=== PATIENT | female | born 1955 | race Caucasian/White ===

== ENCOUNTER 2020-03-21 14:46 | IRF | payer MEDICARE, SELFPAY ==
--- NOTE | 2020-03-21 15:17 | ADMGEN ---
This patient, Marita Piña, was admitted to [facility] Room 221-02. Patient/family oriented to hospital policies and general routines including ID bracelet, bed and alarms, visiting hours, pain management, procedures, bathroom and other care routines, personal items, smoking policy, room service/diet, and visiting hours. Valuables list has been completed. Information on how to activate the Rapid Response Team has been discussed. Patient/Family are encouraged to report perceived risks to care and to ask questions if they do not understand what they are told or what they should do. [id number], arrived on unit, transported bu via private auto, alert and oriented x4, belongings list completed. no c/o pain or discomfort
[2020-03-21 15:30] VITALS: BP 129/77; PULSE 56; RESP 20; TEMP 36.6; O2SAT 96; BMI 33.3
[2020-03-21 15:51] VITALS: BMI 33.3
--- NOTE | 2020-03-21 16:44 | PCRCNOTE ---
pt does not want cpap at this hospital visit due to switches in scalp
[2020-03-21] MEDS: CHOLECALCIFEROL 1,000 UNIT TABLET 2000 UNITS PO (20:10)
[2020-03-21] MEDS: DEXAMETHASONE 4 MG TABLET PO (20:11)
[2020-03-21] MEDS: levETIRAcetam 500 MG TABLET 1000 MG PO (20:11)
[2020-03-21] MEDS: CEPHALEXIN 500 MG CAPSULE PO (20:11)
[2020-03-21] MEDS: CALCIUM CARBONATE (OSCAL) 500 MG TABLET PO (20:11)
[2020-03-21] MEDS: ASCORBIC ACID 500 MG TABLET 1000 MG PO (20:12)
[2020-03-21] MEDS: MULTIVITAMINS THERAPEUTIC TAB (*BKC) 1 TABLET PO (20:12)
[2020-03-21] MEDS: SIMVASTATIN 20 MG TABLET PO (20:12)
[2020-03-21 22:00] VITALS: BP 143/83; PULSE 56; RESP 16; TEMP 36.4; O2SAT 98
[2020-03-22 04:57] LABS: Basophils Percent Auto 0.1 % (0.2-1.2); Hematocrit 36.9 % (37.0-47.0); Hemoglobin 12.3 g/dL (12.0-15.0); Immature Granulocyte Absolute 0.09 K/mm3 (0.00-0.031); Immature Granulocyte Percent A 0.8 % (0-0.5); Lymphocytes Absolute Auto 1.05 K/mm3 (0.9-3.2); Lymphocytes Percent Auto 9.5 % (18.3-44.2); Mean Corpuscular HGB Conc 33.3 g/dl (32-36); Mean Corpuscular Hemoglobin 30.8 pg (26-34); Mean Corpuscular Volume 92.5 fl (80-100); Mean Platelet Volume 9.5 fl (7.4-10.4); Monocytes Absolute Auto 0.8 K/mm3 (0.1-0.6); Monocytes Percent Auto 7.1 % (2.6-8.5); Neutrophils Absolute Auto 9.1 K/mm3 (1.3-6.7); Neutrophils Percent Auto 82.5 % (45.5-73.1); Platelet Count Result 172 k/mm3 (150-375); Red Blood Count 3.99 M/mm3 (4.2-5.4); Red Cell Distribution Width 13.3 % (11.5-14.5)
[2020-03-22 05:15] LABS: Anion Gap 4 mmol/L (8-16); Blood Urea Nitrogen 28 mg/dL (7-17); Calcium 8.5 mg/dL (8.4-10.2); Carbon Dioxide 32 mmol/L (22-30); Chloride 98 mmol/L (98-107); Estimated CRCL calculation 68 ml/min; Estimated Glomerular Filt Rate > 60; Glucose 122 mg/dL (65-105); Potassium 4.8 mmol/L (3.4-5.0); Sodium 134 mmol/L (137-145)
[2020-03-22 06:00] VITALS: BP 140/69; PULSE 50; RESP 18; TEMP 36.1; O2SAT 97
[2020-03-22 07:02] LABS: Glucose Point of Care 107 (65-105)
[2020-03-22] MEDS: DOCUSATE SODIUM 100 MG CAPSULE PO (09:07)
[2020-03-22] MEDS: CEPHALEXIN 500 MG CAPSULE PO ×4 (09:07→20:17)
[2020-03-22] MEDS: DEXAMETHASONE 4 MG TABLET PO ×4 (09:07→20:16)
[2020-03-22] MEDS: ESCITALOPRAM OXALATE 10 MG TABLET PO (09:07)
[2020-03-22] MEDS: levETIRAcetam 500 MG TABLET 1000 MG PO ×2 (09:08→20:16)
--- NOTE | 2020-03-22 12:00 | WPDREHABHP ---
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 And MRI brain on March 08, 2020 demonstrated a dominant or other dominate precentral gyrus 1.8 centimeter solidly enhancing lesion with significant reactive edema, 3 smaller lesions measuring a few millimeters involving the right medial frontal lobe, left occipital lobe, and right cerebellar hemisphere. The patient's left leg is nearly plegic but improving however she feels that it has gotten a little worse since the surgery on March 18, 2020 Dr. Hank Barraza performed an MRI guided right frontal craniotomy for resection of the brain metastases. Postoperatively the patient has experienced acute postoperative pain, acute blood-loss anemia and hypertension. Her pain is controlled with oral medication, her blood pressure is normotensive and she is hemodynamically be stable she was placed on IV Keppra for seizure prophylaxis and she has since transitioned to oral Keppra. Physical examination continues to reveal left lower extremity weakness more so however she does have a left arm weakness 2. She remains awake and alert oriented x3 with [id number] cognitive dysfunction. The drain from the craniotomy site was removed on March 20, 2020. The patient will be discharged to us on the rehab on sequential compression devices the patient has not traveled outside the [place] or had contact with someone who is ill that has traveled outside the [place] in the past 21 days. Patient has not traveled to an area of the [place] that is experiencing known transmission of the Coronavirus and has not had close personal contact with anyone that has. The patient does not have a fever. The patient is not experiencing lower respiratory illness symptoms. The patient test is negative for COVID-19 on March 15, 2020 On March 11, 2020 MRSA was negative. Therapy was initiated at the acute care facility and the patient transferred to us from [facility] on March 21, 2012 on FALLS OR SURGERIES: The patient has had major surgeries in the 100 days prior to admission. They had falls in the past year. They had no falls with injury in the past year. PAST MEDICAL HISTORY: periodic limb movement disorder, pericardial effusion, obstructive sleep apnea, non-small cell lung cancer, hyperlipidemia, hiatal hernia, gastroesophageal reflux disease, chronic obstructive pulmonary disease, hypertension, atrial fibrillation, arthritis, anxiety, depression, vertigo PAST SURGICAL HISTORY: pericardial window 2018, tubal ligation, hysterectomy, Port-A-Cath, ectopic , left breast biopsy. SOCIAL HISTORY: Patient is and retired. She lives with her in a 1 level house 2 steps to enter. She used wheel walker prior. She was independent with functional transfers and ambulation. The patient has had progressive leg weakness due to her brain lesion and that has limited her ability to ambulate. She has an elevated toilet grab bars in the shower and tub shower chair with back and her bathroom is accessible by walker. She required moderate assist with bathing and minimal assistance with toileting and dressing as she progressively worsened. Her helped her. She is hoping to
[2020-03-22 14:00] VITALS: BP 116/63; PULSE 62; RESP 18; TEMP 36.6; O2SAT 97
[2020-03-22 17:29] LABS: Glucose Point of Care 168 (65-105)
[2020-03-22] MEDS: CHOLECALCIFEROL 1,000 UNIT TABLET 2000 UNITS PO (20:16)
[2020-03-22] MEDS: ASCORBIC ACID 500 MG TABLET 1000 MG PO (20:16)
[2020-03-22] MEDS: CALCIUM CARBONATE (OSCAL) 500 MG TABLET PO (20:18)
[2020-03-22] MEDS: SIMVASTATIN 20 MG TABLET PO (20:18)
[2020-03-22] MEDS: MULTIVITAMINS THERAPEUTIC TAB (*BKC) 1 TABLET PO (20:18)
[2020-03-22 22:00] VITALS: BP 124/66; PULSE 72; RESP 20; TEMP 36; O2SAT 96
[2020-03-23 06:00] VITALS: BP 146/78; PULSE 54; RESP 17; TEMP 36.1; O2SAT 100
[2020-03-23 06:47] LABS: Glucose Point of Care 119 (65-105)
[2020-03-23] MEDS: DOCUSATE SODIUM 100 MG CAPSULE PO (08:38)
[2020-03-23] MEDS: CEPHALEXIN 500 MG CAPSULE PO ×4 (08:38→21:02)
[2020-03-23] MEDS: ESCITALOPRAM OXALATE 10 MG TABLET PO (08:38)
[2020-03-23] MEDS: DEXAMETHASONE 4 MG TABLET PO ×4 (08:38→21:02)
[2020-03-23] MEDS: levETIRAcetam 500 MG TABLET 1000 MG PO ×2 (08:38→21:02)
[2020-03-23 11:52] LABS: Glucose Point of Care 118 (65-105)
--- NOTE | 2020-03-23 13:11 | PCPTNOTE ---
Marita Norman Sloanchristophe was evaluated for a wheeled walker on 03/23/2020 by this physical therapist parts room assistant. The wheeled walker will resolve patient's mobility limitations and will be used for ADL's within the home. The patient can safely use the wheeled walker. ?The wheeled walker will resolve the patient?s mobility deficits, including impaired balance and decreased strength.
[2020-03-23 14:00] VITALS: BP 142/75; PULSE 63; RESP 18; TEMP 36.5; O2SAT 96
[2020-03-23 17:14] LABS: Glucose Point of Care 152 (65-105)
[2020-03-23] MEDS: MULTIVITAMINS THERAPEUTIC TAB (*BKC) 1 TABLET PO (21:01)
[2020-03-23] MEDS: SIMVASTATIN 20 MG TABLET PO (21:02)
[2020-03-23] MEDS: ASCORBIC ACID 500 MG TABLET 1000 MG PO (21:02)
[2020-03-23] MEDS: CHOLECALCIFEROL 1,000 UNIT TABLET 2000 UNITS PO (21:02)
[2020-03-23] MEDS: CALCIUM CARBONATE (OSCAL) 500 MG TABLET PO (21:02)
[2020-03-23 21:47] VITALS: BP 110/68; PULSE 71; RESP 18; TEMP 36.4; O2SAT 97
[2020-03-24 06:00] VITALS: BP 135/71; PULSE 52; RESP 18; TEMP 35.5; O2SAT 99
[2020-03-24 06:45] LABS: Glucose Point of Care 110 (65-105)
[2020-03-24] MEDS: CEPHALEXIN 500 MG CAPSULE PO ×4 (08:56→20:38)
[2020-03-24] MEDS: DEXAMETHASONE 4 MG TABLET PO ×4 (08:56→20:38)
[2020-03-24] MEDS: DOCUSATE SODIUM 100 MG CAPSULE PO (08:57)
[2020-03-24] MEDS: ESCITALOPRAM OXALATE 10 MG TABLET PO (08:57)
[2020-03-24] MEDS: levETIRAcetam 500 MG TABLET 1000 MG PO ×2 (08:57→20:38)
--- NOTE | 2020-03-24 09:35 | WPDNEURORHBP ---
Subjective Date/time seen: metastatic brain disease with H/O craniotomy and COPD,AF,And underlyingsmall cell carcinoma of lung03/24/20 09:35 Review of Systems Review of Systems: All systems reviewed & are unremarkable except as noted in HPI and below Functional Status Ambulation Ability Ability to Ambulate 10 Feet: Moderate Assistance X 1 Ambulation Assistive Devices: Walker, Wheeled Exam Const: General: cooperative, comfortable, no acute distress, well developed, alert, awake and well groomed Nutritional Appearance: overweight Orientation/consciousness: patient oriented x3 HENMT: Head: normal to inspection (wound clean) Eyes: General: appearance normal, both eyes and all related structures Neck: Neck: normal visual inspection and full ROM Thyroid: thyroid normal Resp: Effort & Inspection: normal respiratory effort and able to speak in complete sentences Auscultation: clear to auscultation bilaterally Cardio: Rate: regular rate Rhythm: regular rhythm GI: Auscultation: normal bowel sounds Skin: General skin exam: normal color Wounds: wounds noted Neuro: General: patient oriented x3 Cranial nerves: Yes CN's II-XII intact bilaterally Cognition (Neuro): normal cognition Speech: normal speech Motor exam (neuro): Abnormal motor strength present (left jessica LLE>LUE) Plantar Reflex Responses: downgoing: right and upgoing (positive Babinski): left Psych: Appearance: grossly normal Objective Data Vital Signs Vital Signs: Vital Signs - 24 hr 03/23/20 14:00 03/23/20 21:47 03/24/20 06:00 Temperature 36.5 C 36.4 C L 35.5 C L Pulse Rate 63 71 52 L Respiratory Rate 18 18 18 Blood Pressure 142/75 H 110/68 135/71 Pulse Oximetry 96 97 99 Intake/Output Intake/Output: Intake & Output 03/21/20 03/22/20 03/23/20 03/24/20 23:59 23:59 23:59 23:59 Intake Total 240 720 720 480 Balance 240 720 720 480 Meds/Results Medications: Active Medications Generic Name Dose Route Start Last Admin Trade Name Freq PRN Reason Stop Dose Admin Hydrocodone Bitart/Acetaminophen 2 tab 03/21/20 17:04 [place] 5-325 Mg PO Q4H PRN Pain (Scale Score 7-10) Hydrocodone Bitart/Acetaminophen 1 tab 03/21/20 17:08 [place] 5-325 Mg PO Q4H PRN Pain Rated 4-6 Albuterol 2 puff 03/21/20 17:04 Proventil Hfa INHALATION Q6H PRN Shortness Of Breath Ascorbic Acid 1,000 mg 03/21/20 21:00 03/23/20 21:02 Vitamin C PO 1,000 mg HS ANNA MARIE Administration Calcium Carbonate 500 mg 03/21/20 21:00 03/23/20 21:02 Oscal 500 Mg PO 500 mg HS ANNA MARIE Administration Cephalexin HCl 500 mg 03/21/20 21:00 03/24/20 08:56 Keflex Capsule PO 03/31/20 23:00 500 mg QID ANNA MARIE Administration Dexamethasone 4 mg 03/21/20 21:00 03/24/20 08:56 Dexamethasone Po PO 4 mg WMHS ANNA MARIE Administration Diazepam 5 mg 03/21/20 17:04 Valium Po PO Q6H PRN Spasms Docusate Sodium 100 mg 03/22/20 09:00 03/24/20 08:57 Colace Capsule PO 100 mg DAILY ANNA MARIE Administration Escitalopram Oxalate 10 mg 03/22/20 09:00 03/24/20 08:57 Lexapro PO 10 mg DAILY ANNA MARIE Administration Levetiracetam 1,000 mg 03/21/20 21:00 03/24/20 08:57 Keppra Tablet PO 1,000 mg Q12HR ANNA MARIE Administration Multivitamins Therapeutic 1 tablet 03/21/20 21:00 03/23/20 21:01 Multivitamins Therapeutic(*Bkc PO 1 tablet HS ANNA MARIE Administration Senna 8.6 mg 03/21/20 17:04 Senokot Tablet PO BID PRN Constipation Simvastatin 20 mg 03/21/20 21:00 03/23/20 21:02 Zocor PO 20 mg HS [facility] Administration Vitamin D 2,000 unit 03/21/20 21:00 03/23/20 21:02 Vitamin D PO 04/20/20 21:01 2,000 unit HS ANNA MARIE Administration Labs Labs: Laboratory Results - last 24 hr 03/23/20 03/23/20 03/24/20 11:51 17:02 06:23 POC Capillary Glucose 118 H 152 H 110 Progress Note: A&P Assessment and Plan (1) Anxiety and depression: Code(s): F41.9 - Anxiety d
--- NOTE | 2020-03-24 09:43 | RPD ---
INDIVIDUALIZED PLAN OF CARE FOR Marita Piña Brief Synthesis of Pre-Admission Screen, Post-Admission Evaluation and Therapy Evaluations: The patient presents to rehab with brain metastases. Comorbidities include status post craniotomy, non-small cell lung cancer, left leg paresis, acute postoperative pain, acute blood loss anemia, hypertension, hyperlipidemia, periodic limb movement disorder, obstructive sleep apnea, hiatal hernia, gastroesophageal reflux disease, chronic obstructive pulmonary disease, atrial fibrillation, arthritis, anxiety, and depression.The complexity of the patient's medical management, nursing, and therapy needs require an inpatient rehab hospital stay with a physician-led interdisciplinary team approach. The patient?s needs will be best met in an intensive program vs. at a lower level of care. The patient requires physician services for neurology services, medical oversight, and coordination of care. The patient needs physician monitoring and treatment of anemia, perioperative blood loss, monitoring for adverse reactions to new medications, monitoring of infection, and pain control. The patient requires nursing services for frequent neuro checks, anticoagulation therapy, medication management and education, pressure relief and skin care management, monitoring of labs, bowel and bladder training, diabetes management and education, IV administration, and fall/safety precautions Deficits include:ADLs, Balance, Endurance, Family Training/Education, Mobility, Pain Management, ROM, Safety, Strength, and Transfers. Signal Mechanic/Case Management for: Discharge Planning and Patient/Family Counseling Physical Therapy: 5 days per week for 90 minutes. Treatments may include: Therapeutic Exercise, Gait Training, Neuromuscular Re-education, Transfer Training, Community Reintegration, Bed Mobility, Patient/Family Education, Wheelchair Mobility Group Therapy/Concurrent Therapy Rationales: -Improve attention span during functional activities in a distracted environment. -Enhance problem solving and/or adequate judgment skills during functional activities in a distracted environment. -Promote increased safety awareness in a distracted environment to reduce fall risk with functional tasks, transfers, and ambulation to allow a more safe, self-sufficient return to the home environment. -Improve dynamic balance skills to promote safety and independence with functional activities in a distracted environment for maximum gain. Occupational Therapy: 5 days per week for 90 minutes. Treatments may include: Therapeutic Exercise, Therapeutic Activity, Cognitive Training, Self-Care Transfer Training, Community Reintegration, Home Management, Patient/Family Education, Wheelchair Mobility Training, Energy Conservation Training Group Therapy/Concurrent Therapy Rationales: -Allow therapist to observe and teach generalization and carry-over of skills learned in individual therapy. -Enhance problem solving and sequencing skills during therapeutic activities in a distracted environment. -Promote increased safety awareness in a realistic setting to reduce fall risk with functional tasks due to visual and verbal distractions. -Increase functional level with ADLs, ADL transfers and use of adaptive equipment through therapeutic activities with others while promoting safety to allow a more safe, self-sufficient return home. Medical Prognosis: Good Anticipated Length of Stay: 14 days Rehab Goals: Eating Goal: 06-Independent Oral Hygiene Goal: 06-Independent Toileting Hygiene Goal: 06-Independent Shower/Bathe Self Goal: 06-Independent Upper Body Dressing Goal: 06-Independent Lower Body Dressing Goal: 06-Independent Putting On/Taking Off Footwear Goal: 06-Independent Rolling Left and Right Goal: 06-Independent Sit to Lying Goal: 06-Independent Lying to Sitting on Side of Bed Goal: 06-Independent Sit to Stand Goal: 06-Independent Chair/Pyc-ki-Gtjgc Transfer Goal: 06-
--- NOTE | 2020-03-24 10:46 | PCPTNOTE ---
Keli Harrison PTA completed an inpatient rehab wheelchair evaluation on Marita Piña on 03/24/2020. The patient is unable to safely and independently ambulate household distances due to their current impairments. Their diagnosis is small cell lung cancer with metastasis to brain and their impairments include decreased strength, decreased endurance, decreased range of motion, decreased balance and lower extremity weakness.Marita's weight bearing status is weight-bearing as tolerated on the bilateral lower legs. The patient demonstrates significant functional mobility limitations that impair their ability to participate in mobility-related activities of daily living (MRADLs), including toileting, feeding, dressing, grooming, and bathing in the customary locations in the home. These limitations cannot be sufficiently resolved by the use of an appropriately fitted cane or walker. It is recommended that the patient utilize a wheelchair for functional mobility within the home in order to facilitate optimal safety, independence and participation in all MRADL's and adequately access their home environment on a regular basis. The patient's home provides adequate access between rooms, maneuvering space, and surfaces to accommodate the recommended wheelchair. The use of a wheelchair for functional mobility is strongly recommended and the patient is receptive to using the wheelchair. The use of this wheelchair will significantly improve the patient's ability to participate in MRADLS and the patient will use it on a regular basis in the home. This will facilitate optimal safety, independence, and participation. The patient has demonstrated sufficient physical and mental capabilities needed to safely propel a manual wheelchair that is provided in the home during a typical day. Recommended Wheelchair Frame: standard Recommended Wheelchair Size: 18x18 pt.'s anatomical leg length and hip width is 16 inches Recommended Wheelchair Cushion:standard Wheelchair Leg Recommendations: swing away -Anti-tippers are recommended due to patient demonstrating increased risk for falls. They would benefit from anti-tippers with added safety and stabilization. Keli Galvanenport INFORMATION BROKER 03-24-2020 Evaluating Therapist Date I agree with and certify that the above recommendation is medically necessary. Referring Physician Date I agree with and certify that the above recommendation is medically necessary. Referring Physician Date
[2020-03-24 13:13] VITALS: BMI 33.3
[2020-03-24 14:00] VITALS: BP 142/71; PULSE 64; RESP 18; TEMP 36.3; O2SAT 96
--- NOTE | 2020-03-24 14:11 | PCNSR ---
On 03/24/20, the student, Abdiaziz Renner, provided care and completed [employer] hospital documentation on this patient. I have reviewed the student's documentation and agree with the findings.
[2020-03-24 17:07] LABS: Glucose Point of Care 175 (65-105)
[2020-03-24] MEDS: MULTIVITAMINS THERAPEUTIC TAB (*BKC) 1 TABLET PO (20:38)
[2020-03-24] MEDS: SIMVASTATIN 20 MG TABLET PO (20:38)
[2020-03-24] MEDS: ASCORBIC ACID 500 MG TABLET 1000 MG PO (20:38)
[2020-03-24] MEDS: CALCIUM CARBONATE (OSCAL) 500 MG TABLET PO (20:38)
[2020-03-24] MEDS: CHOLECALCIFEROL 1,000 UNIT TABLET 2000 UNITS PO (20:38)
[2020-03-24 22:00] VITALS: BP 140/70; PULSE 68; RESP 20; TEMP 36.6; O2SAT 99
[2020-03-25 06:00] VITALS: BP 136/82; PULSE 52; RESP 18; TEMP 36.3; O2SAT 98
[2020-03-25 06:38] LABS: Glucose Point of Care 110 (65-105)
[2020-03-25] MEDS: DEXAMETHASONE 4 MG TABLET PO ×4 (09:17→20:34)
[2020-03-25] MEDS: DOCUSATE SODIUM 100 MG CAPSULE PO (09:17)
[2020-03-25] MEDS: levETIRAcetam 500 MG TABLET 1000 MG PO ×2 (09:17→20:33)
[2020-03-25] MEDS: CEPHALEXIN 500 MG CAPSULE PO ×4 (09:17→20:33)
[2020-03-25] MEDS: ESCITALOPRAM OXALATE 10 MG TABLET PO (09:17)
--- NOTE | 2020-03-25 11:00 | WPDNEURORHBP ---
Subjective Date/time seen: 03/25/20 11:00 Interval history: this 64-year-old woman is here after having had resection for the metastatic lesion at the right frontal lobe area from non-small cell lung cancer the patient is doing fairly well has been fitted with the left a for because the distal weakness of the foot and the leg is much more pronounced than the rest of the leg and also in the upper extremity the patient's blood sugars controlled patient is on antibiotic for 10 days she has an appointment with the surgeon on March 27, 2020 she is doing fairly well good gait good report from the PT and OT walked 40 feet with wheel walker She denies any headache nausea vomiting chest pain shortness of breath fever chills sore throat Review of Systems Review of Systems: All systems reviewed & are unremarkable except as noted in HPI and below Functional Status Ambulation Ability Ability to Ambulate 10 Feet: Minimum Assistance X 1 Ability to Ambulate 50 Feet With 2 Turns: Minimum Assistance X 1 Ambulation Assistive Devices: Walker, Wheeled Transfers Ability Ability to Transfer In/Out of Chair: Minimum Assistance X 1 Exam Const: General: comfortable and no acute distress HENMT: General nose exam: Normal nares present Mouth: Yes moist mucous membranes Eyes: General: appearance normal, both eyes and all related structures Neck: Neck: supple and no JVD Resp: Effort & Inspection: normal respiratory effort Auscultation: clear to auscultation bilaterally Cardio: Rate: regular rate Rhythm: regular rhythm GI: GI Palp: Yes Soft to palpation Auscultation: normal bowel sounds Skin: General skin exam: normal color and no rashes or lesions noted Neuro: Other: the patient is awake and alert well oriented has normal speech and language function and improving left-sided hemiparesis were the left lower extremities much more involved than the left upper extremity and of course the distal meaning the foot and the lower legs much more involved than the upper lower extremities Extrem: General: normal to inspection Psych: Mental Status: mental status grossly normal Objective Data Vital Signs Vital Signs: Vital Signs - 24 hr 03/24/20 14:00 03/24/20 22:00 03/25/20 06:00 Temperature 36.3 C L 36.6 C 36.3 C L Pulse Rate 64 68 52 L Respiratory Rate 18 20 18 Blood Pressure 142/71 H 140/70 136/82 Pulse Oximetry 96 99 98 Intake/Output Intake/Output: Intake & Output 03/22/20 03/23/20 03/24/20 03/25/20 23:59 23:59 23:59 23:59 Intake Total 720 720 960 Balance 720 720 960 Meds/Results Medications: Active Medications Generic Name Dose Route Start Last Admin Trade Name Freq PRN Reason Stop Dose Admin Hydrocodone Bitart/Acetaminophen 2 tab 03/21/20 17:04 [place] 5-325 Mg PO Q4H PRN Pain (Scale Score 7-10) Hydrocodone Bitart/Acetaminophen 1 tab 03/21/20 17:08 [place] 5-325 Mg PO Q4H PRN Pain Rated 4-6 Albuterol 2 puff 03/21/20 17:04 Proventil Hfa INHALATION Q6H PRN Shortness Of Breath Ascorbic Acid 1,000 mg 03/21/20 21:00 03/24/20 20:38 Vitamin C PO 1,000 mg HS ANNA MARIE Administration Calcium Carbonate 500 mg 03/21/20 21:00 03/24/20 20:38 [place] 500 Mg PO 500 mg HS ANNA MARIE Administration Cephalexin HCl 500 mg 03/21/20 21:00 03/25/20 09:17 Keflex Capsule PO 03/31/20 23:00 500 mg QID ANNA MARIE Administration Dexamethasone 4 mg 03/21/20 21:00 03/25/20 09:17 Dexamethasone Po PO 4 mg [facility] ANNA MARIE Administration Diazepam 5 mg 03/21/20 17:04 Valium Po PO Q6H PRN Spasms Docusate Sodium 100 mg 03/22/20 09:00 03/25/20 09:17 Colace Capsule PO 100 mg DAILY ANNA MARIE Administration Escitalopram Oxalate 10 mg 03/22/20 09:00 03/25/20 09:17 Lexapro PO 10 mg DAILY ANNA MARIE Administration Levetiracetam 1,000 mg 03/21/20 21:00 03/25/20 09:17 Keppra Tablet PO 1,000 mg Q12HR ANNA MARIE Administration Multivitamins Therapeutic 1 tablet
[2020-03-25 14:00] VITALS: BP 132/75; PULSE 56; RESP 20; TEMP 36.7; O2SAT 97
[2020-03-25 17:08] LABS: Glucose Point of Care 241 (65-105)
[2020-03-25] MEDS: SIMVASTATIN 20 MG TABLET PO (20:33)
[2020-03-25] MEDS: ASCORBIC ACID 500 MG TABLET 1000 MG PO (20:33)
[2020-03-25] MEDS: CALCIUM CARBONATE (OSCAL) 500 MG TABLET PO (20:33)
[2020-03-25] MEDS: MULTIVITAMINS THERAPEUTIC TAB (*BKC) 1 TABLET PO (20:33)
[2020-03-25] MEDS: CHOLECALCIFEROL 1,000 UNIT TABLET 2000 UNITS PO (20:33)
[2020-03-25 22:00] VITALS: BP 138/76; PULSE 62; RESP 18; TEMP 36; O2SAT 99
[2020-03-26 06:00] VITALS: BP 150/79; PULSE 50; RESP 18; TEMP 36; O2SAT 99
[2020-03-26 06:35] LABS: Glucose Point of Care 132 (65-105)
[2020-03-26 08:00] VITALS: PULSE 50; RESP 18; O2SAT 99
[2020-03-26] MEDS: levETIRAcetam 500 MG TABLET 1000 MG PO ×2 (08:45→19:30)
[2020-03-26] MEDS: CEPHALEXIN 500 MG CAPSULE PO ×4 (08:45→19:30)
[2020-03-26] MEDS: ESCITALOPRAM OXALATE 10 MG TABLET PO (08:45)
[2020-03-26] MEDS: DEXAMETHASONE 4 MG TABLET PO ×4 (08:45→19:29)
[2020-03-26] MEDS: DOCUSATE SODIUM 100 MG CAPSULE PO (08:45)
--- NOTE | 2020-03-26 13:23 | WPDNEURORHBP ---
Subjective Date/time seen: 03/26/20 13:23 Interval history: this 64-year-old woman is here post craniotomy for right hemispheric metastatic lesion from the non small cell lung cancer with the left lower extremity weakness more so than the left upper extremity weakness she is pretty chair full quite upbeat does not have any specific new complaints she does have an appointment tomorrow with her surgeon for her incision to be looked at and also I have recommended her check with the surgeon about tapering the dexamethasone she is on right now Review of Systems Review of Systems: All systems reviewed & are unremarkable except as noted in HPI and below Functional Status Ambulation Ability Ability to Ambulate 10 Feet: Minimum Assistance X 1 Ability to Ambulate 50 Feet With 2 Turns: Minimum Assistance X 1 Ambulation Assistive Devices: Walker, Wheeled Transfers Ability Ability to Transfer In/Out of Chair: Minimum Assistance X 1 Exam Const: General: comfortable and no acute distress HENMT: General nose exam: Normal nares present Mouth: Yes moist mucous membranes Eyes: General: appearance normal, both eyes and all related structures Neck: Neck: supple and no JVD Resp: Effort & Inspection: normal respiratory effort Auscultation: clear to auscultation bilaterally Cardio: Rate: regular rate Rhythm: regular rhythm GI: GI Palp: Yes Soft to palpation Auscultation: normal bowel sounds Skin: General skin exam: normal color and no rashes or lesions noted Neuro: Other: patient is awake alert well oriented time place and person, the left lower extremity weakness which is much more distal needing the AFO is slowly getting better she still needing assistance to walk because of that and and uses the walker Extrem: Other: left foot drop Psych: Mental Status: mental status grossly normal Objective Data Vital Signs Vital Signs: Vital Signs - 24 hr 03/25/20 14:00 03/25/20 22:00 03/26/20 06:00 Temperature 36.7 C 36.0 C L 36.0 C L Pulse Rate 56 L 62 50 L Respiratory Rate 20 18 18 Blood Pressure 132/75 138/76 150/79 H Pulse Oximetry 97 99 99 03/26/20 08:00 Temperature Pulse Rate 50 L Respiratory Rate 18 Blood Pressure Pulse Oximetry 99 Intake/Output Intake/Output: Intake & Output 03/23/20 03/24/20 03/25/20 03/26/20 23:59 23:59 23:59 23:59 Intake Total 720 960 720 340 Balance 720 960 720 340 Meds/Results Medications: Active Medications Generic Name Dose Route Start Last Admin Trade Name Freq PRN Reason Stop Dose Admin Hydrocodone Bitart/Acetaminophen 2 tab 03/21/20 17:04 [place] 5-325 Mg PO Q4H PRN Pain (Scale Score 7-10) Hydrocodone Bitart/Acetaminophen 1 tab 03/21/20 17:08 [place] 5-325 Mg PO Q4H PRN Pain Rated 4-6 Albuterol 2 puff 03/21/20 17:04 Proventil Hfa INHALATION Q6H PRN Shortness Of Breath Ascorbic Acid 1,000 mg 03/21/20 21:00 03/25/20 20:33 Vitamin C PO 1,000 mg HS ANNA MARIE Administration Calcium Carbonate 500 mg 03/21/20 21:00 03/25/20 20:33 [place] 500 Mg PO 500 mg HS ANNA MARIE Administration Cephalexin HCl 500 mg 03/21/20 21:00 03/26/20 13:09 Keflex Capsule PO 03/31/20 23:00 500 mg QID ANNA MARIE Administration Dexamethasone 4 mg 03/21/20 21:00 03/26/20 13:09 Dexamethasone Po PO 4 mg [facility]HS ANNA MARIE Administration Diazepam 5 mg 03/21/20 17:04 Valium Po PO Q6H PRN Spasms Docusate Sodium 100 mg 03/22/20 09:00 03/26/20 08:45 Colace Capsule PO 100 mg DAILY ANNA MARIE Administration Escitalopram Oxalate 10 mg 03/22/20 09:00 03/26/20 08:45 Lexapro PO 10 mg DAILY ANNA MARIE Administration Levetiracetam 1,000 mg 03/21/20 21:00 03/26/20 08:45 Keppra Tablet PO 1,000 mg Q12HR ANNA MARIE Administration Multivitamins Therapeutic 1 tablet 03/21/20 21:00 03/25/20 20:33 Multivitamins Therapeutic(*Bkc PO 1 tablet HS ANNA MARIE Administration Senna 8.6 mg 03/21/20 17:04 Senokot Tabl
[2020-03-26 14:00] VITALS: BP 123/62; PULSE 60; RESP 16; TEMP 35.9; O2SAT 97
[2020-03-26] MEDS: ASCORBIC ACID 500 MG TABLET 1000 MG PO (19:29)
[2020-03-26] MEDS: MULTIVITAMINS THERAPEUTIC TAB (*BKC) 1 TABLET PO (19:31)
[2020-03-26] MEDS: CHOLECALCIFEROL 1,000 UNIT TABLET 2000 UNITS PO (19:31)
[2020-03-26] MEDS: CALCIUM CARBONATE (OSCAL) 500 MG TABLET PO (19:31)
[2020-03-26] MEDS: SIMVASTATIN 20 MG TABLET PO (19:32)
[2020-03-26 19:50] VITALS: PULSE 52; RESP 18; O2SAT 99
[2020-03-26 22:00] VITALS: BP 137/68; PULSE 52; RESP 18; TEMP 36.2; O2SAT 99
[2020-03-27 06:00] VITALS: BP 107/67; PULSE 65; RESP 18; TEMP 36.4; O2SAT 98
[2020-03-27 07:31] LABS: Glucose Point of Care 135 (65-105)
[2020-03-27] MEDS: CEPHALEXIN 500 MG CAPSULE PO ×4 (08:31→21:12)
[2020-03-27] MEDS: DOCUSATE SODIUM 100 MG CAPSULE PO (08:31)
[2020-03-27] MEDS: DEXAMETHASONE 4 MG TABLET PO ×3 (08:31→17:29)
[2020-03-27] MEDS: ESCITALOPRAM OXALATE 10 MG TABLET PO (08:31)
[2020-03-27] MEDS: levETIRAcetam 500 MG TABLET 1000 MG PO ×2 (08:32→21:11)
--- NOTE | 2020-03-27 11:10 | WPDNEURORHBP ---
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 cell lung carcinoma her left lower extremity is weaker than the left upper extremity she has to wear the AFO to stabilize her ankles she denies any headache nausea vomiting chest pain shortness of breath fever chills sore throat Review of Systems Review of Systems: All systems reviewed & are unremarkable except as noted in HPI and below Functional Status Ambulation Ability Ability to Ambulate 10 Feet: Minimum Assistance X 1 Ability to Ambulate 50 Feet With 2 Turns: Minimum Assistance X 1 Ambulation Assistive Devices: Walker, Wheeled Transfers Ability Ability to Transfer In/Out of Chair: Minimum Assistance X 1 Exam Const: General: comfortable and no acute distress HENMT: General nose exam: Normal nares present Mouth: Yes moist mucous membranes Other: the craniotomy incision is clean Eyes: General: appearance normal, both eyes and all related structures Neck: Neck: supple and no JVD Resp: Effort & Inspection: normal respiratory effort Auscultation: clear to auscultation bilaterally Cardio: Rate: regular rate Rhythm: regular rhythm GI: GI Palp: Yes Soft to palpation Auscultation: normal bowel sounds Skin: General skin exam: normal color and no rashes or lesions noted Neuro: Other: patient is awake and alert will oriented to time place and person has normal speech language function relatively rather happy affect and motivated to work and left-sided hemiparesis better Extrem: General: normal to inspection Other: left AFO Psych: Mental Status: mental status grossly normal Objective Data Vital Signs Vital Signs: Vital Signs - 24 hr 03/26/20 14:00 03/26/20 19:50 03/26/20 22:00 Temperature 35.9 C L 36.2 C L Pulse Rate 60 52 L 52 L Respiratory Rate 16 18 18 Blood Pressure 123/62 137/68 Pulse Oximetry 97 99 99 03/27/20 06:00 Temperature 36.4 C Pulse Rate 65 Respiratory Rate 18 Blood Pressure 107/67 Pulse Oximetry 98 Intake/Output Intake/Output: Intake & Output 03/24/20 03/25/20 03/26/20 03/27/20 23:59 23:59 23:59 23:59 Intake Total 960 720 580 480 Balance 960 720 580 480 Meds/Results Medications: Active Medications Generic Name Dose Route Start Last Admin Trade Name Freq PRN Reason Stop Dose Admin Hydrocodone Bitart/Acetaminophen 2 tab 03/21/20 17:04 [place] 5-325 Mg PO Q4H PRN Pain (Scale Score 7-10) Hydrocodone Bitart/Acetaminophen 1 tab 03/21/20 17:08 [place] 5-325 Mg PO Q4H PRN Pain Rated 4-6 Albuterol 2 puff 03/21/20 17:04 Proventil Hfa INHALATION Q6H PRN Shortness Of Breath Ascorbic Acid 1,000 mg 03/21/20 21:00 03/26/20 19:29 Vitamin C PO 1,000 mg HS [facility] Administration Calcium Carbonate 500 mg 03/21/20 21:00 03/26/20 19:31 Oscal 500 Mg PO 500 mg HS ANNA MARIE Administration Cephalexin HCl 500 mg 03/21/20 21:00 03/27/20 08:31 Keflex Capsule PO 03/31/20 23:00 500 mg QID ANNA MARIE Administration Dexamethasone 4 mg 03/21/20 21:00 03/27/20 08:31 Dexamethasone Po PO 4 mg [facility] ANNA MARIE Administration Diazepam 5 mg 03/21/20 17:04 Valium Po PO Q6H PRN Spasms Docusate Sodium 100 mg 03/22/20 09:00 03/27/20 08:31 Colace Capsule PO 100 mg DAILY ANNA MARIE Administration Escitalopram Oxalate 10 mg 03/22/20 09:00 03/27/20 08:31 Lexapro PO 10 mg DAILY ANNA MARIE Administration Levetiracetam 1,000 mg 03/21/20 21:00 03/27/20 08:32 Keppra Tablet PO 1,000 mg Q12HR ANNA MARIE Administration Multivitamins Therapeutic 1 tablet 03/21/20 21:00 03/26/20 19:31 Multivitamins Therapeutic(*Bkc PO 1 tablet HS [facility] Administration Senna 8.6 mg 03/21/20 17:04 Senokot Tablet PO BID PRN Constipation Simvastatin 20 mg 03/21/20 21:00 03/26/20 19:32 Zocor PO 20 mg HS [facility]
[2020-03-27 14:00] VITALS: BP 142/74; PULSE 72; RESP 20; TEMP 36.2; O2SAT 97
--- NOTE | 2020-03-27 15:10 | PCPTNOTE ---
The patient treatment was not able to be completed on 03-27-2020 due to patient unit for M.D appointment and being very lethargic afterwards. Attempted to see patient at 14:05 and 15:05. Patient missed 90 minutes of PT treatment this session. Will plan to continue treatment per plan of care.
[2020-03-27 17:10] LABS: Glucose Point of Care 201 (65-105)
[2020-03-27] MEDS: CALCIUM CARBONATE (OSCAL) 500 MG TABLET PO (21:13)
[2020-03-27] MEDS: ASCORBIC ACID 500 MG TABLET 1000 MG PO (21:13)
[2020-03-27] MEDS: CHOLECALCIFEROL 1,000 UNIT TABLET 2000 UNITS PO (21:14)
[2020-03-27] MEDS: SIMVASTATIN 20 MG TABLET PO (21:14)
[2020-03-27] MEDS: MULTIVITAMINS THERAPEUTIC TAB (*BKC) 1 TABLET PO (21:15)
[2020-03-27 22:00] VITALS: BP 123/68; PULSE 59; RESP 20; TEMP 37; O2SAT 99
[2020-03-28 06:00] VITALS: BP 148/82; PULSE 58; RESP 18; TEMP 36.2; O2SAT 98
[2020-03-28 06:56] LABS: Glucose Point of Care 98 (65-105)
[2020-03-28] MEDS: ESCITALOPRAM OXALATE 10 MG TABLET PO (09:02)
[2020-03-28] MEDS: CEPHALEXIN 500 MG CAPSULE PO ×4 (09:02→20:15)
[2020-03-28] MEDS: DOCUSATE SODIUM 100 MG CAPSULE PO (09:02)
[2020-03-28] MEDS: DEXAMETHASONE 4 MG TABLET PO ×3 (09:02→17:34)
[2020-03-28] MEDS: levETIRAcetam 500 MG TABLET 1000 MG PO ×2 (09:02→20:14)
[2020-03-28 14:00] VITALS: BP 114/78; PULSE 58; RESP 18; TEMP 36.3; O2SAT 100
[2020-03-28 18:27] LABS: Glucose Point of Care 230 (65-105)
[2020-03-28] MEDS: ASCORBIC ACID 500 MG TABLET 1000 MG PO (20:13)
[2020-03-28] MEDS: CALCIUM CARBONATE (OSCAL) 500 MG TABLET PO (20:15)
[2020-03-28] MEDS: CHOLECALCIFEROL 1,000 UNIT TABLET 2000 UNITS PO (20:15)
[2020-03-28] MEDS: SIMVASTATIN 20 MG TABLET PO (20:15)
[2020-03-28] MEDS: MULTIVITAMINS THERAPEUTIC TAB (*BKC) 1 TABLET PO (20:15)
[2020-03-28 20:17] VITALS: BP 118/74; PULSE 58; RESP 18; TEMP 35.9; O2SAT 98
[2020-03-29 05:19] VITALS: BP 146/81; PULSE 53; RESP 18; TEMP 36.1; O2SAT 98
[2020-03-29 05:22] LABS: Basophils Percent Auto 0.1 % (0.2-1.2); Hematocrit 38.2 % (37.0-47.0); Hemoglobin 12.8 g/dL (12.0-15.0); Immature Granulocyte Absolute 0.09 K/mm3 (0.00-0.031); Immature Granulocyte Percent A 1.1 % (0-0.5); Lymphocytes Absolute Auto 0.67 K/mm3 (0.9-3.2); Lymphocytes Percent Auto 8.5 % (18.3-44.2); Mean Corpuscular HGB Conc 33.5 g/dl (32-36); Mean Corpuscular Volume 92.5 fl (80-100); Mean Platelet Volume 9.1 fl (7.4-10.4); Monocytes Absolute Auto 0.3 K/mm3 (0.1-0.6); Monocytes Percent Auto 3.9 % (2.6-8.5); Neutrophils Absolute Auto 6.8 K/mm3 (1.3-6.7); Neutrophils Percent Auto 86.4 % (45.5-73.1); Platelet Count Result 157 k/mm3 (150-375); Red Blood Count 4.13 M/mm3 (4.2-5.4); Red Cell Distribution Width 13.5 % (11.5-14.5); White Blood Count 7.9 K/mm3 (4.5-10.0)
[2020-03-29 05:36] LABS: Potassium 4.5 mmol/L (3.4-5.0)
[2020-03-29 06:12] LABS: Anion Gap 7 mmol/L (8-16); Blood Urea Nitrogen 27 mg/dL (7-17); Calcium 8.2 mg/dL (8.4-10.2); Carbon Dioxide 29 mmol/L (22-30); Chloride 97 mmol/L (98-107); Estimated CRCL calculation 89 ml/min; Estimated Glomerular Filt Rate > 60; Glucose 114 mg/dL (65-105); Sodium 133 mmol/L (137-145)
[2020-03-29 06:50] LABS: Glucose Point of Care 150 (65-105)
[2020-03-29 08:00] VITALS: PULSE 60; RESP 18; O2SAT 98
[2020-03-29] MEDS: CEPHALEXIN 500 MG CAPSULE PO ×4 (08:48→20:05)
[2020-03-29] MEDS: ESCITALOPRAM OXALATE 10 MG TABLET PO (08:49)
[2020-03-29] MEDS: DEXAMETHASONE 4 MG TABLET PO ×3 (08:49→17:19)
[2020-03-29] MEDS: DOCUSATE SODIUM 100 MG CAPSULE PO (08:49)
[2020-03-29] MEDS: levETIRAcetam 500 MG TABLET 1000 MG PO ×2 (08:50→20:05)
--- NOTE | 2020-03-29 13:33 | WPDNEURORHBP ---
Subjective Date/time seen: 03/29/20 64 years old lady admitted to rehab subsequent to resection of the metastatic disease to the right side of the brain and weakness of the left lower extremity and the left upper extremity as well she is using AFO to stabilizer ankles gives no history of any specific problem right now 13:33 Review of Systems Review of Systems: All systems reviewed & are unremarkable except as noted in HPI and below Functional Status Ambulation Ability Ability to Ambulate 10 Feet: Contact Guard Ability to Ambulate 50 Feet With 2 Turns: Contact Guard Ambulation Assistive Devices: None Transfers Ability Ability to Transfer In/Out of Chair: Minimum Assistance X 1 Exam Narrative: Exam Narrative: examination revealed her to be awake alert cooperative no obvious acute distress head normocephalic neck is supple with no JVD no cervical bruits heart regular with no murmur lungs clear to auscultation with no crepitations or rhonchi abdomen soft with no organomegaly and normal bowel sounds neurological is she is awake alert oriented x3 he speaks no dysphasic no dysarthric no dysphoric cranial nerve examination is normal she had left-sided hemiparesis which is definitely improving and her mental status examination is grossly normal Objective Data Vital Signs Vital Signs: Vital Signs - 24 hr 03/28/20 14:00 03/28/20 20:17 03/29/20 05:19 Temperature 36.3 C L 35.9 C L 36.1 C L Pulse Rate 58 L 58 L 53 L Respiratory Rate 18 18 18 Blood Pressure 114/78 118/74 146/81 H Pulse Oximetry 100 98 98 03/29/20 08:00 Temperature Pulse Rate 60 Respiratory Rate 18 Blood Pressure Pulse Oximetry 98 Intake/Output Intake/Output: Intake & Output 03/26/20 03/27/20 03/28/20 03/29/20 23:59 23:59 23:59 23:59 Intake Total 580 720 840 540 Balance 580 720 840 540 Meds/Results Medications: Active Medications Generic Name Dose Route Start Last Admin Trade Name Freq PRN Reason Stop Dose Admin Hydrocodone Bitart/Acetaminophen 2 tab 03/21/20 17:04 [place] 5-325 Mg PO Q4H PRN Pain (Scale Score 7-10) Hydrocodone Bitart/Acetaminophen 1 tab 03/21/20 17:08 03/28/20 09:07 [place] 5-325 Mg PO 1 tab Q4H PRN Administration Pain Rated 4-6 Albuterol 2 puff 03/21/20 17:04 Proventil Hfa INHALATION Q6H PRN Shortness Of Breath Ascorbic Acid 1,000 mg 03/21/20 21:00 03/28/20 20:13 Vitamin C PO 1,000 mg HS ANNA MARIE Administration Calcium Carbonate 500 mg 03/21/20 21:00 03/28/20 20:15 Oscal 500 Mg PO 500 mg HS ANNA MARIE Administration Cephalexin HCl 500 mg 03/21/20 21:00 03/29/20 12:15 Keflex Capsule PO 03/31/20 23:00 500 mg QID ANNA MARIE Administration Dexamethasone 4 mg 03/28/20 08:00 03/29/20 12:15 Dexamethasone Po PO 4 mg TIDWM ANNA MARIE Administration Diazepam 5 mg 03/21/20 17:04 Valium Po PO Q6H PRN Spasms Docusate Sodium 100 mg 03/22/20 09:00 03/29/20 08:49 Colace Capsule PO 100 mg DAILY ANNA MARIE Administration Escitalopram Oxalate 10 mg 03/22/20 09:00 03/29/20 08:49 Lexapro PO 10 mg DAILY ANNA MARIE Administration Levetiracetam 1,000 mg 03/21/20 21:00 03/29/20 08:50 Keppra Tablet PO 1,000 mg Q12HR ANNA MARIE Administration Multivitamins Therapeutic 1 tablet 03/21/20 21:00 03/28/20 20:15 Multivitamins Therapeutic(*Bkc PO 1 tablet HS [facility] Administration Senna 8.6 mg 03/21/20 17:04 Senokot Tablet PO BID PRN Constipation Simvastatin 20 mg 03/21/20 21:00 03/28/20 20:15 Zocor PO 20 mg HS [facility] Administration Vitamin D 2,000 unit 03/21/20 21:00 03/28/20 20:15 Vitamin D PO 04/20/20 21:01 2,000 units HS ANNA MARIE Administration Labs Labs: Laboratory Results - last 24 hr 03/28/20 03/29/20 03/29/20 17:46 04:56 04:56 WBC 7.9 RBC 4.13 L Hgb 12.8 Hct 38.2 MCV 92.5 MCH 31.0 MCHC 33.5 RDW 13.5 Plt Count 157 MPV 9.1 Immature Gran % (Auto) 1.1 H
[2020-03-29 14:00] VITALS: BP 137/65; PULSE 65; RESP 18; TEMP 35.7; O2SAT 100
[2020-03-29 16:50] LABS: Glucose Point of Care 168 (65-105)
[2020-03-29] MEDS: MULTIVITAMINS THERAPEUTIC TAB (*BKC) 1 TABLET PO (20:04)
[2020-03-29] MEDS: ASCORBIC ACID 500 MG TABLET 1000 MG PO (20:04)
[2020-03-29] MEDS: CHOLECALCIFEROL 1,000 UNIT TABLET 2000 UNITS PO (20:04)
[2020-03-29] MEDS: CALCIUM CARBONATE (OSCAL) 500 MG TABLET PO (20:05)
[2020-03-29] MEDS: SIMVASTATIN 20 MG TABLET PO (20:05)
[2020-03-29 20:20] VITALS: BP 138/53; PULSE 64; RESP 20; TEMP 36.1; O2SAT 98
[2020-03-30 05:39] VITALS: BP 148/78; PULSE 64; RESP 20; TEMP 35.8; O2SAT 97
[2020-03-30 06:46] LABS: Glucose Point of Care 100 (65-105)
[2020-03-30 08:00] VITALS: PULSE 64; RESP 20; O2SAT 97
[2020-03-30] MEDS: DOCUSATE SODIUM 100 MG CAPSULE PO (08:56)
[2020-03-30] MEDS: ESCITALOPRAM OXALATE 10 MG TABLET PO (08:56)
[2020-03-30] MEDS: DEXAMETHASONE 4 MG TABLET PO ×3 (08:56→17:14)
[2020-03-30] MEDS: CEPHALEXIN 500 MG CAPSULE PO ×4 (08:56→21:09)
[2020-03-30] MEDS: levETIRAcetam 500 MG TABLET 1000 MG PO ×2 (08:56→21:09)
[2020-03-30 14:00] VITALS: BP 105/50; PULSE 71; RESP 18; TEMP 36.8; O2SAT 97
[2020-03-30 16:51] LABS: Glucose Point of Care 160 (65-105)
[2020-03-30] MEDS: CHOLECALCIFEROL 1,000 UNIT TABLET 2000 UNITS PO (21:08)
[2020-03-30] MEDS: CALCIUM CARBONATE (OSCAL) 500 MG TABLET PO (21:09)
[2020-03-30] MEDS: MULTIVITAMINS THERAPEUTIC TAB (*BKC) 1 TABLET PO (21:09)
[2020-03-30] MEDS: SIMVASTATIN 20 MG TABLET PO (21:09)
[2020-03-30] MEDS: ASCORBIC ACID 500 MG TABLET 1000 MG PO (21:09)
[2020-03-30 22:00] VITALS: BP 108/65; PULSE 96; RESP 20; TEMP 36.6; O2SAT 97
[2020-03-31 06:00] VITALS: BP 157/85; PULSE 58; RESP 18; TEMP 36.4; O2SAT 98
[2020-03-31 06:36] LABS: Glucose Point of Care 105 (65-105)
[2020-03-31] MEDS: DEXAMETHASONE 4 MG TABLET PO ×3 (08:55→17:29)
[2020-03-31] MEDS: CEPHALEXIN 500 MG CAPSULE PO ×4 (08:55→20:21)
[2020-03-31] MEDS: levETIRAcetam 500 MG TABLET 1000 MG PO ×2 (08:56→20:21)
[2020-03-31] MEDS: DOCUSATE SODIUM 100 MG CAPSULE PO (08:56)
[2020-03-31] MEDS: ESCITALOPRAM OXALATE 10 MG TABLET PO (08:56)
--- NOTE | 2020-03-31 12:53 | WPDNEURORHBP ---
Subjective Date/time seen: 03/31/20 12:53 Interval history: this 64-year-old woman is here after having had craniotomy for removal of metastatic disease to her brain she is improving overall and making excellent progress denies any headache nausea vomiting chest pain shortness of breath her dexamethasone has been decreased by the surgeon with home she had the follow-up last week and she does have a follow-up in coming couple of weeks when he will decide further about decrement of her dexamethasone She denies any headache nausea vomiting chest pain shortness of breath fever chills sore throat Review of Systems Review of Systems: All systems reviewed & are unremarkable except as noted in HPI and below Constitutional: Constitutional: Reports as per HPI and Reports no additional constitutional complaints Functional Status Ambulation Ability Ability to Ambulate 10 Feet: Contact Guard Ability to Ambulate 50 Feet With 2 Turns: Contact Guard Ambulation Assistive Devices: Walker, Wheeled Transfers Ability Ability to Transfer In/Out of Chair: Minimum Assistance X 1 Exam Const: General: comfortable and no acute distress HENMT: Other: the scalp incision looks very good on the right side status post craniotomy Eyes: General: appearance normal, both eyes and all related structures Neck: Neck: supple and no JVD Resp: Effort & Inspection: normal respiratory effort Auscultation: clear to auscultation bilaterally Cardio: Rate: regular rate Rhythm: regular rhythm GI: GI Palp: Yes Soft to palpation Auscultation: normal bowel sounds Skin: General skin exam: normal color and no rashes or lesions noted Neuro: Other: patient's mental status remains normal with normal cranial examination and slowly improving left-sided weakness primarily the left lower extremity distally more so than the proximal Extrem: General: normal to inspection Objective Data Vital Signs Vital Signs: Vital Signs - 24 hr 03/30/20 14:00 03/30/20 22:00 03/31/20 06:00 Temperature 36.8 C 36.6 C 36.4 C L Pulse Rate 71 96 58 L Respiratory Rate 18 20 18 Blood Pressure 105/50 L 108/65 157/85 H Pulse Oximetry 97 97 98 Intake/Output Intake/Output: Intake & Output 03/28/20 03/29/20 03/30/20 03/31/20 23:59 23:59 23:59 23:59 Intake Total 840 780 600 240 Balance 840 780 600 240 Meds/Results Medications: Active Medications Generic Name Dose Route Start Last Admin Trade Name Freq PRN Reason Stop Dose Admin Hydrocodone Bitart/Acetaminophen 2 tab 03/21/20 17:04 [place] 5-325 Mg PO Q4H PRN Pain (Scale Score 7-10) Hydrocodone Bitart/Acetaminophen 1 tab 03/21/20 17:08 03/28/20 09:07 [place] 5-325 Mg PO 1 tab Q4H PRN Administration Pain Rated 4-6 Albuterol 2 puff 03/21/20 17:04 Proventil Hfa INHALATION Q6H PRN Shortness Of Breath Ascorbic Acid 1,000 mg 03/21/20 21:00 03/30/20 21:09 Vitamin C PO 1,000 mg HS [facility] Administration Calcium Carbonate 500 mg 03/21/20 21:00 03/30/20 21:09 Oscal 500 Mg PO 500 mg HS AN[facility] Administration Cephalexin HCl 500 mg 03/21/20 21:00 03/31/20 12:38 Keflex Capsule PO 03/31/20 23:00 500 mg QID ANNA MARIE Administration Dexamethasone 4 mg 03/28/20 08:00 03/31/20 12:38 Dexamethasone Po PO 4 mg TIDWM ANNA MARIE Administration Diazepam 5 mg 03/21/20 17:04 Valium Po PO Q6H PRN Spasms Docusate Sodium 100 mg 03/22/20 09:00 03/31/20 08:56 Colace Capsule PO 100 mg DAILY ANNA MARIE Administration Escitalopram Oxalate 10 mg 03/22/20 09:00 03/31/20 08:56 Lexapro PO 10 mg DAILY ANNA MARIE Administration Levetiracetam 1,000 mg 03/21/20 21:00 03/31/20 08:56 Keppra Tablet PO 1,000 mg Q12HR ANNA MARIE Administration Multivitamins Therapeutic 1 tablet 03/21/20 21:00 03/30/20 21:09 Multivitamins Therapeutic(*Bkc PO 1 tablet HS ANNA MARIE Administration Senna 8.6 mg 03/21/20 17:04 Senokot Tablet PO BID PRN Constipatio
--- NOTE | 2020-03-31 13:14 | PCNFU ---
Nutrition Follow-Up Complete: Obesity related to excessive energy intake as evidenced by BMI of 33.4 goal: Patient to consume 75% or more of meals Patient is meeting goal at 100% meal consumption and will continue with current goal Pt current nutrition is regular. Nutrition recommendation: Agree with current recommendations Last recorded weight is 91 kg. Bowel Motility: 03/29/20 last reported bowel movement Labs Reviewed: Na (133) BUN (27) Cr (0.6) Glu (114) Meds Noted: [place], Keppra, Proventil, Vitamin C, Multivitamin, Oscal, Keflex, Zocar, Colace, Vitamin D, Senokot Additional Notes: Patient reports food is delicious and appetite is good. No diet related problems/concerns reported. Follow up in 7 days
[2020-03-31 14:00] VITALS: BP 132/65; PULSE 86; RESP 20; TEMP 36.1; O2SAT 96
--- NOTE | 2020-03-31 14:09 | PCNSR ---
On 03/31/20, the student, Abdiaziz Renner, provided care and completed [facility] documentation on this patient. I have reviewed the student's documentation and agree with the findings.
[2020-03-31 17:57] LABS: Glucose Point of Care 175 (65-105)
[2020-03-31] MEDS: CALCIUM CARBONATE (OSCAL) 500 MG TABLET PO (20:21)
[2020-03-31] MEDS: MULTIVITAMINS THERAPEUTIC TAB (*BKC) 1 TABLET PO (20:21)
[2020-03-31] MEDS: SIMVASTATIN 20 MG TABLET PO (20:21)
[2020-03-31] MEDS: ASCORBIC ACID 500 MG TABLET 1000 MG PO (20:21)
[2020-03-31] MEDS: CHOLECALCIFEROL 1,000 UNIT TABLET 2000 UNITS PO (20:21)
[2020-03-31 20:36] VITALS: BP 102/58; PULSE 70; RESP 18; TEMP 36.1; O2SAT 98
[2020-04-01 05:58] VITALS: BP 145/75; PULSE 71; RESP 18; TEMP 35.8; O2SAT 98
[2020-04-01 06:39] LABS: Glucose Point of Care 109 (65-105)
[2020-04-01] MEDS: ESCITALOPRAM OXALATE 10 MG TABLET PO (10:03)
[2020-04-01] MEDS: DOCUSATE SODIUM 100 MG CAPSULE PO (10:03)
[2020-04-01] MEDS: levETIRAcetam 500 MG TABLET 1000 MG PO ×2 (10:03→20:13)
[2020-04-01] MEDS: DEXAMETHASONE 4 MG TABLET PO ×3 (10:03→16:49)
--- NOTE | 2020-04-01 12:51 | WPDNEURORHBP ---
Subjective Date/time seen: 04/01/20 12:51 Interval history: this 64-year-old woman is here status post resection of the metastatic disease to right cerebral hemisphere which has left her with the left lower extremity weakness distal much more so than the proximal and she has to wear AFO to ambulate better she is insisting to go home although we wanted her to stay at least a few more days but we finally agreed with the conversation with the that will be able to discharged tomorrow she denies any headache nausea vomiting chest pain shortness of breath fever chills sore throat she is able to walk more than 150 feet the patient will require family training and this was discussed with was on the line for the weekly tele conference Review of Systems Review of Systems: All systems reviewed & are unremarkable except as noted in HPI and below Functional Status Ambulation Ability Ability to Ambulate 10 Feet: Standby Assistance Ability to Ambulate 50 Feet With 2 Turns: Contact Guard Ambulation Assistive Devices: Walker, Wheeled Transfers Ability Ability to Transfer In/Out of Chair: Minimum Assistance X 1 Exam Const: General: comfortable and no acute distress HENMT: General nose exam: Normal nares present Mouth: Yes moist mucous membranes Eyes: General: appearance normal, both eyes and all related structures Neck: Neck: supple and no JVD Resp: Effort & Inspection: normal respiratory effort Auscultation: clear to auscultation bilaterally Cardio: Rate: regular rate Rhythm: regular rhythm GI: GI Palp: Yes Soft to palpation Auscultation: normal bowel sounds Skin: General skin exam: normal color and no rashes or lesions noted Neuro: Other: patient is awake alert and well oriented with normal speech and language function and significantly improved left-sided weakness which had involved the left lower extremity more so than the left upper extremity but is still has to wear the AFO of for the left lower extremity weakness Extrem: General: normal to inspection Psych: Mental Status: mental status grossly normal Objective Data Vital Signs Vital Signs: Vital Signs - 24 hr 03/31/20 14:00 03/31/20 20:36 04/01/20 05:58 Temperature 36.1 C L 36.1 C L 35.8 C L Pulse Rate 86 70 71 Respiratory Rate 20 18 18 Blood Pressure 132/65 102/58 L 145/75 H Pulse Oximetry 96 98 98 Intake/Output Intake/Output: Intake & Output 08/03/30/20 03/31/20 04/01/20 23:59 23:59 23:59 23:59 Intake Total 780 600 840 120 Balance 780 600 840 120 Meds/Results Medications: Active Medications Generic Name Dose Route Start Last Admin Trade Name Freq PRN Reason Stop Dose Admin Albuterol 2 puff 03/21/20 17:04 Proventil Hfa INHALATION Q6H PRN Shortness Of Breath Ascorbic Acid 1,000 mg 03/21/20 21:00 03/31/20 20:21 Vitamin C PO 1,000 mg HS ANNA MARIE Administration Calcium Carbonate 500 mg 03/21/20 21:00 03/31/20 20:21 Oscal 500 Mg PO 500 mg HS ANNA MARIE Administration Dexamethasone 4 mg 03/28/20 08:00 04/01/20 12:02 Dexamethasone Po PO 4 mg TIDWM ANNA MARIE Administration Diazepam 5 mg 03/21/20 17:04 Valium Po PO Q6H PRN Spasms Docusate Sodium 100 mg 03/22/20 09:00 04/01/20 10:03 Colace Capsule PO 100 mg DAILY ANNA MARIE Administration Escitalopram Oxalate 10 mg 03/22/20 09:00 04/01/20 10:03 Lexapro PO 10 mg DAILY ANNA MARIE Administration Levetiracetam 1,000 mg 03/21/20 21:00 04/01/20 10:03 Keppra Tablet PO 1,000 mg Q12HR ANNA MARIE Administration Multivitamins Therapeutic 1 tablet 03/21/20 21:00 03/31/20 20:21 Multivitamins Therapeutic(*Bkc PO 1 tablet HS ANNA MARIE Administration Senna 8.6 mg 03/21/20 17:04 Senokot Tablet PO BID PRN Constipation Simvastatin 20 mg 03/21/20 21:00 03/31/20 20:21 Zocor PO 20 mg HS ANNA MARIE Administration Vitamin D 2,000 unit 03/21/20 21:00 03/31/20 20:21 Vitamin D PO 04/20/20 21:01 2,000 u
[2020-04-01 14:00] VITALS: BP 95/57; PULSE 68; RESP 16; TEMP 36.3; O2SAT 100
[2020-04-01 17:06] LABS: Glucose Point of Care 122 (65-105)
[2020-04-01 20:09] VITALS: BP 123/58; PULSE 71; RESP 18; TEMP 35.7; O2SAT 100
[2020-04-01] MEDS: ASCORBIC ACID 500 MG TABLET 1000 MG PO (20:13)
[2020-04-01] MEDS: SIMVASTATIN 20 MG TABLET PO (20:13)
[2020-04-01] MEDS: CHOLECALCIFEROL 1,000 UNIT TABLET 2000 UNITS PO (20:13)
[2020-04-01] MEDS: MULTIVITAMINS THERAPEUTIC TAB (*BKC) 1 TABLET PO (20:13)
[2020-04-01] MEDS: CALCIUM CARBONATE (OSCAL) 500 MG TABLET PO (20:13)
[2020-04-02 05:17] VITALS: BP 151/63; PULSE 58; RESP 20; TEMP 35.9; O2SAT 98
[2020-04-02 06:29] LABS: Glucose Point of Care 109 (65-105)
[2020-04-02] MEDS: ESCITALOPRAM OXALATE 10 MG TABLET PO (08:32)
[2020-04-02] MEDS: DEXAMETHASONE 4 MG TABLET PO ×2 (08:32→12:13)
[2020-04-02] MEDS: levETIRAcetam 500 MG TABLET 1000 MG PO (08:32)
[2020-04-02] MEDS: DOCUSATE SODIUM 100 MG CAPSULE PO (08:32)
[2020-04-02 09:29] VITALS: O2SAT 96
--- NOTE | 2020-04-02 11:32 | WPDNEURORHBP ---
Subjective Date/time seen: 04/02/20 11:32 Interval history: This 64-year-old woman has finished the rehabilitation here after having had the resection of the metastatic lesion of the right side of the brain and in fact had 1 follow-up with the treating neurosurgeon several days ago when the stitches were removed and she should have a follow-up appoint 2 weeks from then she is ready to be discharged has done will the rehab she still has the left lower extremity weakness for which she uses the AFO and has has done quite well denies any headache nausea vomiting chest pain shortness of breath fever chills sore throat her metastatic disease to the brain is related to the non-small lung cancer Review of Systems Review of Systems: All systems reviewed & are unremarkable except as noted in HPI and below Functional Status Ambulation Ability Ability to Ambulate 10 Feet: Standby Assistance Ability to Ambulate 50 Feet With 2 Turns: Contact Guard Ambulation Assistive Devices: Walker, Wheeled Transfers Ability Ability to Transfer In/Out of Chair: Minimum Assistance X 1 Exam Const: General: comfortable and no acute distress HENMT: General nose exam: Normal nares present Mouth: Yes moist mucous membranes Other: the incision on top of the scalp is clean and healthy Eyes: General: appearance normal, both eyes and all related structures Neck: Neck: supple and no JVD Resp: Effort & Inspection: normal respiratory effort Auscultation: clear to auscultation bilaterally Cardio: Rate: regular rate Rhythm: regular rhythm GI: GI Palp: Yes Soft to palpation Auscultation: normal bowel sounds Skin: General skin exam: normal color and no rashes or lesions noted Neuro: Other: patient remains in good spirits awake and alert well oriented time place and person looking forward to go home and has significant improvement in her neurological deficit of the left-sided hemiparesis Extrem: General: normal to inspection Psych: Mental Status: mental status grossly normal Objective Data Vital Signs Vital Signs: Vital Signs - 24 hr 04/01/20 14:00 04/01/20 20:09 04/02/20 05:17 Temperature 36.3 C L 35.7 C L 35.9 C L Pulse Rate 68 71 58 L Respiratory Rate 16 18 20 Blood Pressure 95/57 L 123/58 L 151/63 H Pulse Oximetry 100 100 98 04/02/20 09:29 Temperature Pulse Rate Respiratory Rate Blood Pressure Pulse Oximetry 96 Intake/Output Intake/Output: Intake & Output 03/30/20 03/31/20 04/01/20 04/02/20 23:59 23:59 23:59 23:59 Intake Total 600 840 360 240 Balance 600 840 360 240 Meds/Results Medications: Active Medications Generic Name Dose Route Start Last Admin Trade Name Freq PRN Reason Stop Dose Admin Albuterol 2 puff 03/21/20 17:04 Proventil Hfa INHALATION Q6H PRN Shortness Of Breath Ascorbic Acid 1,000 mg 03/21/20 21:00 04/01/20 20:13 Vitamin C PO 1,000 mg HS ANNA MARIE Administration Calcium Carbonate 500 mg 03/21/20 21:00 04/01/20 20:13 Oscal 500 Mg PO 500 mg HS ANNA MARIE Administration Dexamethasone 4 mg 03/28/20 08:00 04/02/20 08:32 Dexamethasone Po PO 4 mg TIDWM ANNA MARIE Administration Diazepam 5 mg 03/21/20 17:04 Valium Po PO Q6H PRN Spasms Docusate Sodium 100 mg 03/22/20 09:00 04/02/20 08:32 Colace Capsule PO 100 mg DAILY ANNA MARIE Administration Escitalopram Oxalate 10 mg 03/22/20 09:00 04/02/20 08:32 Lexapro PO 10 mg DAILY ANNA MARIE Administration Levetiracetam 1,000 mg 03/21/20 21:00 04/02/20 08:32 Keppra Tablet PO 1,000 mg Q12HR ANNA MARIE Administration Multivitamins Therapeutic 1 tablet 03/21/20 21:00 04/01/20 20:13 Multivitamins Therapeutic(*Bkc PO 1 tablet HS ANNA MARIE Administration Senna 8.6 mg 03/21/20 17:04 Senokot Tablet PO BID PRN Constipation Simvastatin 20 mg 03/21/20 21:00 04/01/20 20:13 Zocor PO 20 mg HS ANNA MARIE Administration Vitamin D 2,000 unit 03/21/20 21:00 04/01/20 20:13 Vitamin D
--- NOTE | 2020-04-04 16:21 | DS_ITS ---
DATE OF DISCHARGE: 04/02/2020 DISCHARGE ACUTE REHAB DIAGNOSIS: Brain dysfunction, nontraumatic in nature with etiological diagnosis of brain metastasis for which the patient has undergone craniotomy. REASON FOR ADMISSION: 1. A 64-year-old right-handed female with history of non-small cell carcinoma of the lung with metastatic disease to the brain. 2. Chronic obstructive pulmonary disease. 3. Hypertension. 4. Hyperlipidemia. 5. Atrial fibrillation. Presented to [facility] in [place] on 03/18/2020 for surgical resection of her right precentral gyrus lesion. MRI of the brain on 03/08/2020 demonstrated dominant or other dominant precentral gyrus 1.8 cm solid enhancing lesion with significant reactive edema and 3 smaller lesion measuring a few millimeters involving the right medial frontal lobe, left occipital lobe and right cerebellar hemisphere. The patient's left lower extremity was nearly plegic. Dr. Hank Barraza performed MRI guided right frontal craniotomy for resection of brain metastasis. Postoperatively, patient developed the pain, became anemic and hypertensive, which were treated accordingly. She was also started on IV Keppra for the seizure prophylaxis and transitioned to the oral Keppra, but she continued to have left lower extremity weakness along with left upper extremity weakness. She was awake, alert, and oriented x3 with [id number] cognitive dysfunction. The drain was removed from the craniotomy on 03/20/2020 and was discharged to rehab with sequential compression devices and with no history of COVID exposure. LEVEL OF FUNCTION AT THE TIME OF ADMISSION: The patient was independent in eating, required substantial assistance for oral hygiene, toileting, bathing, lower body dressing and footwear, chair transfer, and toilet transfer. She required partial assistance for upper body dressing, rolling in bed, sit to lying, lying to sit, sit to stand, car transfer walking 10 feet, 10 feet on uneven surfaces. Picking up object, wheelchair for 50 feet and 150 feet. She was unable to walk 50 feet with 2 turns, walk 150 feet. She was dependent for curb or step, 4 steps and 12 steps. ANTICIPATED REHAB GOALS AT THE TIME OF ADMISSION: Were to make her independent in eating, oral hygiene, toileting, bathing, upper body dressing, lower body dressing, footwear, rolling in bed, sit to lying, lying to sit, sit to stand, chair transfer, toilet transfer, walking 10 feet. Required only setup for the car transfer, supervision for walking 10 feet on uneven surfaces, curb or step, 4 steps, 12 steps though she will be unable to walk 50 feet with 2 turns or walk 150 feet. LEVEL OF FUNCTION AT THE TIME OF DISCHARGE: The patient became independent in eating, oral hygiene, toileting, rolling in bed, sit to lying, and lying to sit. She required only supervision for bathing, upper body dressing, lower body dressing, footwear, sit to stand, chair transfer, toilet transfer, car transfer, 10 feet walking, walking 50 feet with 2 turns, walking 10 feet on uneven surfaces, curb or step, 4 steps and also picking up object. The only thing she was unable to do walk on the uneven surfaces that is 12 steps. HOSPITAL COURSE: During the hospitalization, she was followed by the physician. No other consultants were involved during the entire hospitalization. At the time of discharge, she was able to walk 10 feet standby assistance, 50 feet with 2 turns, contact guard with wheeled walker, transfer minimal assistance of 1. General physical examination remained stable so as the neurological examination. Vital signs were stable. DISCHARGE MEDICATIONS: Included: 1. Albuterol 2 puff inhalation q.6 hours p.r.n. 2. Ascorbic acid 1000 mg p.o. scheduled. 3. Calcium carbonate 500 p.o. h.s. 4. Dexamethasone 4 mg p
== END 2020-04-02 13:00 | disposition home health service (06) | DRG 949 ==
PROVIDERS: Admitting Provider Psychiatry & Neurology Neurology; PCP Family Medicine; Visit Provider Psychiatry & Neurology Neurology
DX: Z48.811 Encounter for surgical aftercare following surgery on the nervous system (principal); C79.31 Secondary malignant neoplasm of brain; C34.90 Malignant neoplasm of unspecified part of unspecified bronchus or lung; G81.94 Hemiplegia, unspecified affecting left nondominant side; E78.5 Hyperlipidemia, unspecified; F41.8 Other specified anxiety disorders; G47.61 Periodic limb movement disorder; G47.33 Obstructive sleep apnea (adult) (pediatric); I48.91 Unspecified atrial fibrillation; I10 Essential (primary) hypertension; J44.9 Chronic obstructive pulmonary disease, unspecified; R41.3 Other amnesia; Z87.891 Personal history of nicotine dependence
CPT/HCPCS: 36415; 80048; 85025; 92523; 97110; 97116; 97162; 97166; 97530; 97535; 97542; A9270; J8540